=== PATIENT | male | born 1990 | race Caucasian/White ===

== ENCOUNTER → 2023-05-05 | Outpatient (CLI) | payer OTHER ==
[~2023-05-05] MED LIST: ALLE24TA7 PO; GASTROGRAFIN SOLUTION 30ML As Ordered ONE; IMAT100TAB PO; ISOVUE-370 76% 100ML VIAL As Ordered ONE
== END ==
LOC: M RAD 07:15
PROVIDERS: ATTEND Specialist
DX: C49.A0 Gastrointestinal stromal tumor, unspecified site (principal)
CPT/HCPCS: 71260; 74177; Q9963; Q9967